=== PATIENT | female | born 1960 | race Caucasian/White ===

== ENCOUNTER 2017-09-06 06:54 | Day surgery (SDC) | payer OTHER ==
[~2017-09-06 06:54] MED LIST: Bupivacaine 0.5% 50 ML MDV ONE; Lidocaine 1% with EPINEPHrine 1:100,000 50 ML MDV ONE
[2017-09-06] MEDS ORDERED: Albuterol/Ipratropium 3.0-0.5 MG/3 ML Neb Soln NEB ONE (07:30)
[2017-09-06] MEDS ORDERED: Dextrose 5%-Lactated Ringers 1,000 ML IV SCH (07:30)
[2017-09-06] MEDS ORDERED: ceFAZolin 1 GM in Premix Bag 1 BAG IV ONE (08:15)
[2017-09-06] MEDS ORDERED: Midazolam 1 MG/ML 2 ML SDV ONE (09:09)
[2017-09-06] MEDS ORDERED: Propofol 200 MG/20 ML SDV ONE ×2 (09:09→09:36)
[2017-09-06] MEDS ORDERED: fentaNYL 100 MCG/2 ML SDV ONE (09:09)
--- NOTE | 2017-09-15 11:39 | OR ---
DATE OF PROCEDURE: 09/06/2017 PREOPERATIVE DIAGNOSIS: Nodular lesion, medial aspect of the left breast. POSTOPERATIVE DIAGNOSIS: Nodular lesion, medial aspect of the left breast. PROCEDURE PERFORMED: Excisional biopsy of the nodular lesion, medial aspect of left breast ([id number]). ANESTHESIA: Local plus IV sedation. INDICATION FOR PROCEDURE: This is a 57-year-old status post breast reduction, presenting with a linear nodular lesion on the medial aspect of the breast reduction incision. Plan is to proceed with an excision of this for diagnostic and therapeutic purposes. It is causing some discomfort at her bra strap line and the enlargement raises a slight possibility of some neoplastic change. Potential risks including bleeding, infection, need for additional treatment if malignancy is identified were reviewed, and the patient wishes to proceed. DETAILS OF PROCEDURE: The patient was taken to the operating room and placed in a left lateral decubitus position. IV sedation was administered, after which the area around the medial aspect of the left breast was prepped and draped. That area was then marked out along the skin as it had been preoperatively with a marking pen, and the area anesthetized with 1% lidocaine, essentially was in line with the medial most aspect of her breast reduction incision and an elliptical incision removing that area of skin as well as the underlying soft tissues was then made and carried down through the skin and subcutaneous tissue and down to what appeared to be the edge of the breast tissue. The specimen was then delivered from the field and hemostasis was obtained with electrocautery. The incision was closed with 4-0 Vicryl stitch deep and then a 5-0 Prolene skin stitch. Dressing was applied. The patient was taken to the recovery room in satisfactory condition. Espinoza Bolton MD /[id number]
== END 2017-09-06 11:20 | disposition home or self-care (01) ==
LOC: JP.SDS 06:54
PROVIDERS: ATTEND Surgery
DX: N63.20 Unspecified lump in the left breast, unspecified quadrant (principal); E66.9 Obesity, unspecified
CPT/HCPCS: 19120; 88304; 94640; J0690; J2250; J2704; J3010; J7042; J7620

== ENCOUNTER 2017-09-14 12:27 | Emergency (ER) | payer OTHER ==
--- NOTE | 2017-09-14 13:25 | EDM.PDOC ---
<Darron,Lacey - Last Filed: 09/14/17 13:53> ED HPI GENERAL MEDICAL PROBLEM - General Chief Complaint: Chest Pain Stated Complaint: CHEST PAIN Time Seen by Provider: 09/14/17 13:00 Source of Information: Reports: Patient History Limitations: Reports: No Limitations - History of Present Illness INITIAL COMMENTS - FREE TEXT/NARRATIVE: Pt presents with sudden onset upper right pain just below the clavicle. Onset: Today, Sudden Onset Date: 09/14/17 Onset Time: 09:00 Duration: Minutes:, Getting Worse Location: Reports: Chest, Other (upper right chest just below clavicle) - Related Data Allergies Allergy/AdvReac Type Severity Reaction Status Date / Time acetaminophen [From Vicodin] Allergy Other Verified 09/06/17 07:09 codeine Allergy Anaphylactic Verified 09/06/17 07:09 Shock hydrocodone [From Vicodin] Allergy Other Verified 09/06/17 07:09 morphine Allergy Other Verified 09/06/17 07:09 Home Meds: Home Meds Albuterol [Ventolin HFA] 2 inh INH Q4H PRN 09/02/17 [History] Aspirin [Adult Low Dose Aspirin EC] 81 mg PO DAILY 09/02/17 [History] Citalopram Hydrobromide [Celexa] 20 mg PO DAILY 09/02/17 [History] Cyclobenzaprine [Flexeril] 10 mg PO TID PRN 09/02/17 [History] Verapamil [Verapamil SR (24 Hr)] 180 mg PO DAILY 09/02/17 [History] atorvaSTATin [Lipitor] 40 mg PO DAILY 09/02/17 [History] Hydroxychloroquine Sulfate 200 mg PO BID 09/06/17 [History] predniSONE [Prednisone] 5 mg PO ASDIRECTED 09/06/17 [History] Past Medical History Cardiovascular History: Reports: None Respiratory History: Reports: Bronchitis, Recurrent Social & Family History - Family History Cardiac: Reports: Other (See Below) Other Cardiac Family History: mother with heart hx but not specific to type ED ROS GENERAL - Review of Systems Review Of Systems: See Below Constitutional: Reports: No Symptoms HEENT: Reports: No Symptoms Respiratory: Reports: Pleuritic Chest Pain. Denies: Shortness of Breath Cardiovascular: Reports: No Symptoms. Denies: Chest Pain, Dyspnea on Exertion, Orthopnea GI/Abdominal: Reports: No Symptoms. Denies: Abdominal Pain ED EXAM, GENERAL - Physical Exam Exam: See Below Free Text/Narrative:: 57 y/o female - VS stable, no tracheal deviation, Heart sounds regular, Lung sounds clear all sadler. Exam Limited By: No Limitations General Appearance: Alert, WD/WN, No Apparent Distress Neck: Normal Inspection, Supple, Non-Tender, Full Range of Motion Respiratory/Chest: No Respiratory Distress, Lungs Clear, Normal Breath Sounds, No Accessory Muscle Use, Chest Non-Tender, Other (unable to recreate pain with palpation) Cardiovascular: Normal Peripheral Pulses, Regular Rate, Rhythm, No Edema, No Gallop, No JVD, No Murmur, No Rub GI/Abdominal: Normal Bowel Sounds, Soft, Non-Tender Extremities: Normal Inspection, Normal Range of Motion, Other (right arm with full range of motion and unable to recreate the pain in the chest) EKG INTERPRETATION EKG Date: 09/14/17 Rhythm: NSR Rate (Beats/Min): 85 [place]: Normal P-Wave: Present QRS: Normal ST-T: Normal EKG Interpretation Comments: Sinus Rhythm Course - Vital Signs Last Recorded V/S: Last Vital Signs Temp 98.2 F 09/14/17 12:33 Pulse 74 09/14/17 13:53 Resp 12 09/14/17 13:53 BP 129/89 09/14/17 13:53 Pulse Ox 98 09/14/17 13:53 - Radiology Interpretation Free Text/Narrative:: Chest xray completed with no abnormal findings per radiologist Departure - Departure Disposition: Home, Self-Care 01 Clinical Impression: Pleurisy - Discharge Information Instructions: Pleurisy Referrals: PCP,None [Primary Care Provider] - Forms: ED Department Discharge Additional Instructions: Activity as tolerated Care Plan Goals: Increase activity as tolerated. Return if you develop fevers, increased shortness of breath or pain. 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 Psychiatric History: Reports: Anxiety, Depression Endocrine/Metabolic History: Reports: Obesity/BMI 30+ Oncologic (Cancer) History: Reports: Basal Cell Carcinoma Dermatologic History: Reports: Eczema - Infectious Disease History Infectious Disease History: Reports: Chicken Pox - Past Surgical History HEENT Surgical History: Reports: LASIK, Oral Surgery, Tonsillectomy Other HEENT Surgeries/Procedures: wisdom teeth GI Surgical History: Reports: Cholecystectomy, Colonoscopy Female Surgical History: Reports: Breast Reduction, Hysterectomy Oncologic Surgical History: Reports: Other (See Below) Other Oncologic Surgeries/Procedures: skin biopsy, MOHS procedure Social & Family History - Family History Family Medical History: Noncontributory - Tobacco Use Smoking Status *Q: Never Smoker - Caffeine Use Caffeine Use: Reports: Coffee, Soda - Recreational Drug Use Recreational Drug Use: No Course - Re-Assessments/Exams Free Text/Narrative Re-Assessment/Exam: 09/14/17 14:14 Discussed with the patient her normal EKG and normal chest x-ray. The hand hematoma is improving with pressure and needs no further treatment. Patient will return if symptoms are worsening or she develops other concern. Departure - Departure Time of Disposition: 14:19
--- NOTE | 2017-09-14 13:45 | CR ---
CHEST: 2 view CLINICAL HISTORY:Dyspnea COMPARISON:None FINDINGS: Lung sadler are clear. Heart and pulmonary vascularity appear normal. There are no effusio ns. IMPRESSION: No acute cardiopulmonary process
== END 2017-09-14 14:19 | disposition home or self-care (01) ==
LOC: JP.ED 12:27
DX: R09.1 Pleurisy (principal); E78.00 Pure hypercholesterolemia, unspecified; J45.909 Unspecified asthma, uncomplicated; Z88.6 Allergy status to analgesic agent; Z88.5 Allergy status to narcotic agent; Z79.82 Long term (current) use of aspirin; Z79.899 Other long term (current) drug therapy
CPT/HCPCS: 71046; 71046-26; 99285

== ENCOUNTER 2018-08-26 16:54 | Emergency (ER) | payer OTHER ==
--- NOTE | 2018-08-26 18:03 | EDM.PDOC ---
<Ara Toure - Last Filed: 08/26/18 18:05> ED HPI GENERAL MEDICAL PROBLEM - General Chief Complaint: Abdominal Pain Stated Complaint: PAIN IN ABD/BACK/DOWN RIGHT LEG Time Seen by Provider: 08/26/18 17:58 Source of Information: Reports: Patient History Limitations: Reports: No Limitations - History of Present Illness INITIAL COMMENTS - FREE TEXT/NARRATIVE: pt arrived stating that she has been having pain in the rt mid abdoman for about 3 weeks. This is very severe at times. She states the pain is intolerable. Onset: Gradual, Other (pt states the pain was very severe today. ) Duration: Day(s): Location: Reports: Abdomen Associated Symptoms: Reports: No Other Symptoms Right Flank Pain Score (Numeric/FACES): 7 - Related Data Allergies Allergy/AdvReac Type Severity Reaction Status Date / Time acetaminophen [From Vicodin] Allergy Other Verified 08/26/18 17:22 codeine Allergy Anaphylactic Verified 08/26/18 17:22 Shock hydrocodone [From Vicodin] Allergy Other Verified 08/26/18 17:22 morphine Allergy Other Verified 08/26/18 17:22 Home Meds: Home Meds Albuterol [Ventolin HFA] 2 inh INH Q4H PRN 09/02/17 [History] Aspirin [Adult Low Dose Aspirin EC] 81 mg PO DAILY 09/02/17 [History] Citalopram Hydrobromide [Celexa] 20 mg PO DAILY 09/02/17 [History] Cyclobenzaprine [Flexeril] 10 mg PO TID PRN 09/02/17 [History] Verapamil [Verapamil SR (24 Hr)] 180 mg PO DAILY 09/02/17 [History] atorvaSTATin [Lipitor] 40 mg PO DAILY 09/02/17 [History] Hydroxychloroquine Sulfate 200 mg PO BID 09/06/17 [History] Past Medical History HEENT History: Reports: Impaired Vision Other HEENT History: wears glasses Cardiovascular History: Reports: High Cholesterol, Hypertension 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 Psychiatric History: Reports: Anxiety, Depression Endocrine/Metabolic History: Reports: Obesity/BMI 30+ Oncologic (Cancer) History: Reports: Basal Cell Carcinoma Dermatologic History: Reports: Eczema - Infectious Disease History Infectious Disease History: Reports: Chicken Pox - Past Surgical History HEENT Surgical History: Reports: LASIK, Oral Surgery, Tonsillectomy Other HEENT Surgeries/Procedures: wisdom teeth GI Surgical History: Reports: Cholecystectomy, Colonoscopy Female Surgical History: Reports: Breast Reduction, Hysterectomy Oncologic Surgical History: Reports: Other (See Below) Other Oncologic Surgeries/Procedures: skin biopsy, MOHS procedure Social & Family History - Family History Family Medical History: Noncontributory Cardiac: Reports: Other (See Below) Other Cardiac Family History: mother with heart hx but not specific to type - Tobacco Use Smoking Status *Q: Never Smoker - Caffeine Use Caffeine Use: Reports: Coffee - Recreational Drug Use Recreational Drug Use: No ED ROS GENERAL - Review of Systems Review Of Systems: See Below Constitutional: Reports: No Symptoms HEENT: Reports: No Symptoms Respiratory: Reports: No Symptoms Cardiovascular: Reports: No Symptoms Endocrine: Reports: No Symptoms GI/Abdominal: Reports: Abdominal Pain, Other (pt had a normal stool today. ) : Reports: No Symptoms Musculoskeletal: Reports: No Symptoms Skin: Reports: No Symptoms Neurological: Reports: No Symptoms, Other (pt has had a past history of a cerebral aneuyism which was coiled. ) Psychiatric: Reports: No Symptoms ED EXAM, GI/ABD - Physical Exam Exam: See Below Text/Narrative:: pt arrived with pain in the rt lower abdoman. She states when she gets this at times it is very severe. Exam Limited By: No Limitations General Appearance: Alert, Anxious, Moderate Distress Ears: Normal TMs Nose: Normal Inspection Throat/Mouth: Normal Inspection Head: Atraumatic Neck: Normal Inspection Respiratory/Chest: No Respiratory Distress Cardiovascular: Regular Rate, Rhythm GI/Abdominal Exam: Soft, Other (mild tenderness in the rt lower abdoman. ) (Female) Exam: Deferred Rectal (Female) Exam: Deferred Back Exam: Normal Inspection Extremities: Normal Inspection Neurological: Alert, Oriented, Normal Cognition Course - Vital Signs Last Recorded V/S: Last Vital Signs Temp 37.0 C 08/26/18 17:25 Pulse 80 08/26/18 17:25 Resp 20 08/26/18 17:25 BP 153/84 H 08/26/18 17:25 Pulse Ox 96 08/26/18 17:25 - Orders/Labs/Meds Orders: Active Orders 24 hr Category Date Time Status CULTURE URINE [RM] Stat Lab 08/26/18 18:01 Received Iopamidol [Isovue-300 (61%)] Med 08/26/18 18:45 Active 150 ml IV . DIRECTED Sodium Chloride 0.9% [Normal Saline] 1,000 ml Med 08/26/18 18:30 Active IV ASDIRECTED Medication Orders Sodium Chloride (Normal Saline) 1,000 mls @ 999 mls/hr IV ASDIRECTED [facility]LOE Last Admin: 08/26/18 19:08 Dose: 999 mls/hr Iopamidol (Isovue-300 (61%)) 150 ml IV . DIRECTED [facility] Labs: Laboratory Tests 08/26/18 08/26/18 08/26/18 Range/Units 17:31 17:42 17:42 WBC 10.0 (4.5-11.0) K/uL RBC 5.04 (3.30-5.50) M/uL Hgb 14.3 (12.0-15.0) g/dL Hct 43.6 (36.0-48.0) % MCV 87 (80-98) fL MCH 28 (27-31) pg MCHC 33 (32-36) % Plt Count 363 (150-400) K/uL Neut % (Auto) 67 H (36-66) % Lymph % (Auto) 26 (24-44) % Mcdowell % (Auto) 6 (2-6) % Eos % (Auto) 1 L (2-4) % Baso % (Auto) 1 (0-1) % Sodium 141 (140-148) mmol/L Potassium 4.3 (3.6-5.2) mmol/L Chloride 105 (100-108) mmol/L Carbon Dioxide 26 (21-32) mmol/L Anion Gap 9.7 (5.0-14.0) mmol/L BUN 22 H (7-18) mg/dL Creatinine 1.0 (0.6-1.0) mg/dL Est Cr Clr Drug Dosing 56.71 mL/min Estimated GFR (MDRD) 57 L (>60) Glucose 156 H (74-106) mg/dL Calcium 10.1 (8.5-10.1) mg/dL Total Bilirubin 0.3 (0.2-1.0) mg/dL AST 23 (15-37) U/L ALT 31 (12-78) U/L Alkaline Phosphatase 126 H (46-116) U/L C-Reactive Protein (0.0-0.3) mg/dL Total Protein 7.6 (6.4-8.2) g/dL Albumin 4.0 (3.4-5.0) g/dL Globulin 3.6 H (2.3-3.5) g/dL Albumin/Globulin Ratio 1.1 L (1.2-2.2) Urine Color Yellow Urine Appearance Clear Urine pH 5.0 (4.5-8.0) Ur Specific Macy 1.030 (1.008-1.030) Urine Protein Negative (NEGATIVE) mg/dL Urine Glucose (UA) Normal (NEGATIVE) mg/dL Urine Ketones Negative (NEGATIVE) mg/dL Urine Occult Blood Large (NEGATIVE) Urine Nitrite Negative (NEGATIVE) Urine Bilirubin Negative (NEGATIVE) Urine Urobilinogen Normal (NORMAL) mg/dL Ur Leukocyte Esterase Trace (NEGATIVE) Urine RBC 20-30 H (0-5) Urine WBC 5-10 H (0-5) Ur Epithelial Cells Moderate Amorphous Sediment Not seen Urine Bacteria Many Urine Mucus Few 08/26/18 Range/Units 18:11 WBC (4.5-11.0) K/uL RBC (3.30-5.50) M/uL Hgb (12.0-15.0) g/dL Hct (36.0-48.0) % MCV (80-98) fL MCH (27-31) pg MCHC (32-36) % Plt Count (150-400) K/uL Neut % (Auto) (36-66) % Lymph % (Auto) (24-44) % Mcdowell % (Auto) (2-6) % Eos % (Auto) (2-4) % Baso % (Auto) (0-1) % Sodium (140-148) mmol/L Potassium (3.6-5.2) mmol/L Chloride (100-108) mmol/L Carbon Dioxide (21-32) mmol/L Anion Gap (5.0-14.0) mmol/L BUN (7-18) mg/dL Creatinine (0.6-1.0) mg/dL Est Cr Clr Drug Dosing mL/min Estimated GFR (MDRD) (>60) Glucose (74-106) mg/dL Calcium (8.5-10.1) mg/dL Total Bilirubin (0.2-1.0) mg/dL AST (15-37) U/L ALT (12-78) U/L Alkaline Phosphatase (46-116) U/L C-Reactive Protein 0.18 (0.0-0.3) mg/dL Total Protein (6.4-8.2) g/dL Albumin (3.4-5.0) g/dL Globulin (2.3-3.5) g/dL Albumin/Globulin Ratio (1.2-2.2) Urine Color Urine Appearance Urine pH (4.5-8.0) Ur Specific Macy (1.008-1.030) Urine Protein (NEGATIVE) mg/dL Urine Glucose (UA) (NEGATIVE) mg/dL Urine Ketones (NEGATIVE) mg/dL Urine Occult Blood (NEGATIVE) Urine Nitrite (NEGATIVE) Urine Bilirubin (NEGATIVE) Urine Urobilinogen (NORMAL) mg/dL Ur Leukocyte Esterase (NEGATIVE) Urine RBC (0-5) Urine WBC (0-5) Ur Epithelial Cells Amorphous Sediment Urine Bacteria Urine Mucus Meds: Medications Generic Name Dose Route Start Last Admin Trade Name Freq PRN Reason Stop Dose Admin Sodium Chloride 1,000 mls @ 999 mls/hr 08/26/18 18:30 08/26/18 19:08 Normal Saline IV 999 mls/hr ASDIRECTED CHLOE Administration Iopamidol 150 ml 08/26/18 18:45 Isovue-300 (61%) IV . DIRECTED [facility]LOE Discontinued Medications Generic Name Dose Route Start Last Admin Trade Name Freq PRN Reason Stop Dose Admin Sodium Chloride 100 mls @ 3.5 mls/sec 08/26/18 18:39 08/26/18 19:25 Normal Saline IV 08/26/18 18:40 3.5 mls/sec ONETIME ONE Administration Sodium Chloride 10 ml 08/26/18 18:39 08/26/18 19:25 Saline Flush FLUSH 08/26/18 18:40 10 ml ONETIME ONE Administration - Re-Assessments/Exams Free Text/Narrative Re-Assessment/Exam: 08/26/18 18:09 pt has alot of rbcs in her urine. She also has bacteria. She had a cat scan on the that did not reveal a stone. . There was a small fat containing hernia protruding between the rectus muscles. Departure - Departure Disposition: Home, Self-Care 01 Clinical Impression: Intermittent right lower quadrant abdominal pain - Discharge Information Instructions: Abdominal Pain, Adult, [id number] Referrals: PCP,None [Primary Care Provider] - Forms: ED Department Discharge Additional Instructions: Take TMP/SMZ DS every 12 hrs at least until your urine culture results are available. Drink ample fluids. Take ibuprofen 600 mg every 6 hrs with food and/ or aceteminophen up to 1000 mg every 6 hrs for pain relief. If more pain relief is needed try Percocet 1 every 4 hrs as needed. Keep your appt for Wednesday with the surgeon. Return here as needed. Check with your family doctor in 3 days regarding the result of your urine culture. - My Orders Last 24 Hours: My Active Orders 08/26/18 18:45 Iopamidol [Isovue-300 (61%)] 150 ml IV . DIRECTED - Assessment/Plan Last 24 Hours: My Active Orders 08/26/18 18:45 Iopamidol [Isovue-300 (61%)] 150 ml IV . DIRECTED <Bernard Nixon G - Last Filed: 08/26/18 20:28> Course - Radiology Interpretation Free Text/Narrative:: CT abd/pelvis without contrast-neg. Departure - Departure Time of Disposition: 20:30 Condition: Fair - Discharge Information *PRESCRIPTION DRUG MONITORING PROGRAM REVIEWED*: No *COPY OF PRESCRIPTION DRUG MONITORING REPORT IN PATIENT MAIDA: No
[2018-08-26] MEDS ORDERED: Sodium Chloride 0.9% 1,000 ML IV SCH (18:30)
[2018-08-26] MEDS ORDERED: Sodium Chloride 0.9% 100 ML IV ONE (18:39)
[2018-08-26] MEDS ORDERED: Iopamidol 612 MG/ML 150 ML Bottle IV SCH (18:45)
[2018-08-26] MEDS: Sodium Chloride 0.9% 10 ML Syringe FLUSH ONE ×2 (19:09→19:25)
--- NOTE | 2018-08-26 20:16 | CRLCT ---
INDICATION: Pain in right lower abdomen. CT ABDOMEN AND PELVIS WITH CONTRAST TECHNIQUE: Multidetector CT imaging was performed through the abdomen and pelvis following intravenous contrast administration using 150 mL Isovue 300. Coronal and sagittal reconstructions were generated. COMPARISON: 08/10/2018 CT abdomen and pelvis. FINDINGS: Lower chest: Lung bases are clear. Liver: Within normal limits. Gallbladder and bile ducts: Status post cholecystectomy, as before. No biliary dilation identified. Pancreas: Unremarkable. Spleen: Normal. Adrenals: No nodules or masses. Kidneys, ureters, and urinary bladder: Unchanged small left renal cyst. No suspicious renal masses or hydronephrosis. No bladder mass or definite wall thickening. Gastrointestinal tract and abdominal wall: Normal caliber bowel without wall thickening. The appendix is normal. Diastasis recti and unchanged small midline fat-containing ventral hernia in the suprapubic region. Vascular structures: Normal for age. Peritoneum: No free air, abscess, or significant free fluid. Lymph nodes: No pathologically enlarged nodes identified. Reproductive organs: Status post hysterectomy, as before. No pelvic masses. Bones: Minor spinal degenerative changes. IMPRESSION: 1. No acute abnormality identified. No definite cause for the patient`s symptoms is demonstrated. 2. Nonacute findings as detailed above. MODE BAXTER MD [employer] Dictated by Lobito Baxter MD @ 08/26/2018 8:08:18 PM Dictated by: Lobito Baxter MD @ 08/26/2018 20:13:38 (Electronically Signed)
[2018-08-26] MEDS ORDERED: Iopamidol 500 ML BOTTLE IV ONE (23:19)
== END 2018-08-26 20:39 | disposition home or self-care (01) ==
LOC: JP.ED 16:54
DX: R10.31 Right lower quadrant pain (principal); I10 Essential (primary) hypertension; E78.00 Pure hypercholesterolemia, unspecified; F41.9 Anxiety disorder, unspecified; F32.9 Major depressive disorder, single episode, unspecified; Z79.82 Long term (current) use of aspirin; Z79.899 Other long term (current) drug therapy; Z88.6 Allergy status to analgesic agent; Z88.5 Allergy status to narcotic agent; Z88.8 Allergy status to other drugs, medicaments and biological substances; K43.9 Ventral hernia without obstruction or gangrene
CPT/HCPCS: 36415; 74177; 76705; 80053; 81001; 85025; 86140; 87086; 96360; 99284; J7030

== ENCOUNTER 2020-03-01 11:51 | Emergency (ER) | payer OTHER ==
[2020-03-01] MEDS ORDERED: Acyclovir 200 MG Cap PO ONE (12:25)
--- NOTE | 2020-03-01 12:30 | EDM.PDOC ---
ED HPI GENERAL MEDICAL PROBLEM - General Chief Complaint: Skin Complaint Stated Complaint: THINKS SHE HAS SHINGLES Time Seen by Provider: 03/01/20 12:25 Source of Information: Reports: Patient History Limitations: Reports: No Limitations - History of Present Illness INITIAL COMMENTS - FREE TEXT/NARRATIVE: pt has pain over her rt thigh which has been there for 3-4 days. She is now breaking out in a rash and this does look like shingles. Onset: Other ( rash started 36 hours ago and the pain started 4 days ago. ) Duration: Hour(s): Location: Reports: Lower Extremity, Right Associated Symptoms: Reports: No Other Symptoms, Other (pt has not had a fever. ) - Related Data Allergies Allergy/AdvReac Type Severity Reaction Status Date / Time acetaminophen [From Vicodin] Allergy Other Verified 08/26/18 17:22 codeine Allergy Anaphylactic Verified 08/26/18 17:22 Shock hydrocodone [From Vicodin] Allergy Other Verified 08/26/18 17:22 morphine Allergy Other Verified 08/26/18 17:22 Home Meds: Home Meds Albuterol [Ventolin HFA] 2 inh INH Q4H PRN 09/02/17 [History] Aspirin [Adult Low Dose Aspirin EC] 81 mg PO DAILY 09/02/17 [History] Citalopram Hydrobromide [Celexa] 20 mg PO DAILY 09/02/17 [History] Cyclobenzaprine [Flexeril] 10 mg PO TID PRN 09/02/17 [History] Verapamil [Verapamil SR (24 Hr)] 180 mg PO DAILY 09/02/17 [History] atorvaSTATin [Lipitor] 40 mg PO DAILY 09/02/17 [History] Hydroxychloroquine Sulfate 200 mg PO BID 09/06/17 [History] Past Medical History HEENT History: Reports: Impaired Vision Other HEENT History: wears glasses Cardiovascular History: Reports: High Cholesterol, Hypertension Respiratory History: Reports: Asthma 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 Psychiatric History: Reports: Anxiety, Depression Endocrine/Metabolic History: Reports: Obesity/BMI 30+ Oncologic (Cancer) History: Reports: Basal Cell Carcinoma Dermatologic History: Reports: Eczema - Infectious Disease History Infectious Disease History: Reports: Chicken Pox - Past Surgical History HEENT Surgical History: Reports: LASIK, Oral Surgery, Tonsillectomy Other HEENT Surgeries/Procedures: wisdom teeth GI Surgical History: Reports: Cholecystectomy, Colonoscopy Female Surgical History: Reports: Breast Reduction, Hysterectomy Oncologic Surgical History: Reports: Other (See Below) Other Oncologic Surgeries/Procedures: skin biopsy, MOHS procedure Social & Family History - Family History Family Medical History: No Pertinent Family History Cardiac: Reports: Other (See Below) Other Cardiac Family History: mother with heart hx but not specific to type - Tobacco Use Tobacco Use Status *Q: Never Tobacco User - Caffeine Use Caffeine Use: Reports: Coffee ED ROS GENERAL - Review of Systems Review Of Systems: See Below Constitutional: Reports: Other (pt is having discomfort. ) HEENT: Reports: No Symptoms Respiratory: Reports: No Symptoms Cardiovascular: Reports: No Symptoms Endocrine: Reports: No Symptoms GI/Abdominal: Reports: No Symptoms : Reports: No Symptoms Musculoskeletal: Reports: Other (pt has pain in rt thigh. ) Neurological: Reports: No Symptoms Psychiatric: Reports: No Symptoms Hematologic/Lymphatic: Reports: No Symptoms ED EXAM, SKIN/RASH Exam: See Below Text/Narrative:: pt arrived with a rash on the rt thigh. She is having alot discomfort. She now has a rash which looks like shingles. Exam Limited By: No Limitations General Appearance: Alert, Anxious, Moderate Distress Ears: Normal TMs Nose: Normal Inspection Throat/Mouth: Normal Inspection Head: Atraumatic Neck: Normal Inspection Respiratory/Chest: No Respiratory Distress Cardiovascular: Regular Rate, Rhythm GI/Abdominal: Soft, Non-Tender (Female) Exam: Deferred Rectal (Female) Exam: Deferred Back Exam: Normal Inspection Extremities: Other (pt has a vescular rash on the rt thigh area. This is not extensive. ) Neurological: Alert, Oriented, Normal Cognition Psychiatric: Anxious Course - Vital Signs Last Recorded V/S: Last Vital Signs Temp 37.2 C 03/01/20 12:06 Pulse 70 03/01/20 12:06 Resp 16 03/01/20 12:06 BP 137/72 03/01/20 12:06 Pulse Ox 94 L 03/01/20 12:06 - Orders/Labs/Meds Meds: Medications Discontinued Medications Generic Name Dose Route Start Last Admin Trade Name Freq PRN Reason Stop Dose Admin Acyclovir 600 mg 03/01/20 12:25 Zovirax PO 03/01/20 12:26 ONETIME ONE Departure - Departure Time of Disposition: 12:28 Disposition: Home, Self-Care 01 Condition: Fair Clinical Impression: Shingles rash - Discharge Information Instructions: Shingles, [id number] Referrals: Queenie Gonzáles, RN [Primary Care Provider] - Forms: ED Department Discharge Care Plan Goals: zovirax 400mg 3 times daily for 5 days. , predisone 20mg daily for 5 days, norco 5/325 q6h prn for pain # 10. rtc if pt should get worse or follow with primary provider. Sepsis Event Note (ED) - Evaluation Sepsis Screening Result: No Definite Risk
== END 2020-03-01 12:52 | disposition home or self-care (01) ==
LOC: JP.ED 11:51
DX: B02.9 Zoster without complications (principal); M79.651 Pain in right thigh; I10 Essential (primary) hypertension; E78.00 Pure hypercholesterolemia, unspecified; J45.909 Unspecified asthma, uncomplicated; M19.90 Unspecified osteoarthritis, unspecified site; F41.9 Anxiety disorder, unspecified; F32.9 Major depressive disorder, single episode, unspecified; E66.9 Obesity, unspecified; Z68.38 Body mass index [BMI] 38.0-38.9, adult; Z88.6 Allergy status to analgesic agent; Z88.5 Allergy status to narcotic agent; Z79.82 Long term (current) use of aspirin; Z79.899 Other long term (current) drug therapy
CPT/HCPCS: 99283

== ENCOUNTER 2021-02-12 08:34 | Day surgery (SDC) | payer OTHER ==
[~2021-02-12 08:34] MED LIST changes: -Lidocaine 1% with EPINEPHrine 1:100,000 50 ML MDV ONE
[2021-02-12] MEDS ORDERED: Midazolam 1 MG/ML 2 ML SDV ONE ×2 (08:52→12:41)
[2021-02-12] MEDS ORDERED: fentaNYL 100 MCG/2 ML SDV ONE ×2 (08:52→12:27)
[2021-02-12] MEDS ORDERED: Propofol 200 MG/20 ML SDV ONE ×4 (08:52→12:46)
[2021-02-12] MEDS ORDERED: Nozin Nasal Sanitizer NASBOTH ONE (09:00)
[2021-02-12] MEDS ORDERED: ceFAZolin 2 GM in Premix Bag 1 BAG IV ONE (09:00)
[2021-02-12] MEDS ORDERED: Lactated Ringers 1,000 ML IV SCH (09:00)
[2021-02-12] MEDS ORDERED: Bupivacaine 0.5% 30 ML SDV ONE (09:14)
[2021-02-12] MEDS ORDERED: Dexamethasone 4 MG/ML SDV ONE (13:26)
[2021-02-12] MEDS ORDERED: Ondansetron 4 MG/2 ML SDV ONE (13:26)
[2021-02-12] MEDS ORDERED: traMADol 50 MG Tab PO ONE (15:23)
--- NOTE | 2021-02-19 21:54 | OR ---
DATE OF PROCEDURE: 02/12/2021 SURGEON: Jenaro Membreno MD PREOPERATIVE DIAGNOSES: 1. Impingement right shoulder. 2. Partial thickness rotator cuff tear, possible full-thickness. POSTOPERATIVE DIAGNOSES: 1. Impingement right shoulder. 2. Severe partial thickness tear, supraspinous. 3. Degenerative labral tear. PROCEDURES: Arthroscopy, right shoulder with debridement of labrum, subacromial decompression with acromioplasty and repair of rotator cuff. COMPANY ACCOUNTANT: ODALYS Chappell ANESTHESIA: Interscalene block with sedation. INDICATIONS: Yanet is a 60-year-old female with a history of persistent pain and weakness in the right shoulder, especially with overhead activities and lifting. Examination and imaging are consistent with impingement and at least partial thickness rotator cuff tear. She has failed conservative treatment, now presents for evaluation of rotator cuff and repair if necessary. Risks, benefits, and potential complications of the procedure were discussed. DESCRIPTION OF PROCEDURE: After adequate anesthesia was obtained, the patient was placed in a lateral decubitus position and secured with a segura bag positioner. Right shoulder and arm were prepped and draped in a sterile fashion and 10 pounds of traction was placed in a shoulder traction unit. A standard posterior portal was established. Glenohumeral joint was inspected. This revealed intact articular cartilage on the humeral head and glenoid. Some mild degenerative changes of the anterior labrum was noted with free flap along the anterior and anterior-superior portion running up to the junction with the biceps attachment. The biceps tendon itself was intact. Subscapularis was intact. The anterior portal was established. The degenerative flaps of the labrum were debrided. The undersurface of the rotator cuff was evaluated and found to have severe partial-thickness tear with an area of erythematous granulation tissue filling the gap. The scope was withdrawn and placed in the subacromial space. Significant impingement was noted against the coracoacromial ligament and anterolateral acromion. Using the radiofrequency ablation wand, soft tissues were cleared from the undersurface of the acromion exposing the anterolateral edge and a rich was utilized to perform an acromioplasty removing approximately 4 mm. The bursal side of the rotator cuff was inspected. This revealed the partial thickness tear with a very thin layer of granulation tissue present. This was debrided. This resulted in a small full-thickness tear of approximately 1 cm. Using both shaver and a small bur, the superior aspect of the tuberosity was debrided and lightly decorticated. A single Mitek Healix anchor was placed. All 4 limbs of the suture anchor were then brought up through the tendon in a mattress fashion and tied down. This reapproximated the tendon to the tuberosity and all 4 limbs were then delivered through a knotless anchor which was placed just off the lateral edge of the acromion providing a suture bridge and a lateral row. The arm was taken through internal and external rotation. No other abnormalities were identified. Repair was stable. Shoulder was drained and scope was withdrawn. Port sites were closed with 3-0 Monocryl suture. Steri-Strips were applied along with sterile dressing. The patient tolerated procedure well. There were no complications and taken from the operating room in stable condition. Jenaro Membreno MD /[id number]
== END 2021-02-12 16:00 | disposition home or self-care (01) ==
LOC: JP.SDS 08:34
PROVIDERS: ATTEND Specialist
DX: M75.121 Complete rotator cuff tear or rupture of right shoulder, not specified as traumatic (principal); M25.811 Other specified joint disorders, right shoulder; S43.431A Superior glenoid labrum lesion of right shoulder, initial encounter; M06.9 Rheumatoid arthritis, unspecified; G43.909 Migraine, unspecified, not intractable, without status migrainosus; E78.2 Mixed hyperlipidemia; F43.23 Adjustment disorder with mixed anxiety and depressed mood; F41.9 Anxiety disorder, unspecified; Z98.890 Other specified postprocedural states; Z79.899 Other long term (current) drug therapy; Z88.5 Allergy status to narcotic agent; Z79.82 Long term (current) use of aspirin
CPT/HCPCS: 29826; 29827; A9270; C1713; J0690; J1100; J2250; J2405; J2704; J3010; J3490; J7120

== ENCOUNTER 2021-02-12 16:45 | Emergency (ER) | payer OTHER ==
[2021-02-12] MEDS ORDERED: Ketorolac 30 MG/ML SDV IVPUSH ONE (16:59)
[2021-02-12] MEDS: Ketorolac 30 MG/ML SDV IM ONE (17:09)
[2021-02-12] MEDS: Alum Hydrox/Mag Hydrox/Simeth 15 ML, Lidocaine 2% 15 ML PO ONE ×2 (17:21)
--- NOTE | 2021-02-12 17:46 | EDM.PDOC ---
ED HPI GENERAL MEDICAL PROBLEM - General Chief Complaint: Chest Pain Stated Complaint: LEFT SIDE CHEST PAIN Time Seen by Provider: 02/12/21 17:15 Source of Information: Reports: Patient, Family, Provider History Limitations: Reports: No Limitations - History of Present Illness INITIAL COMMENTS - FREE TEXT/NARRATIVE: 60-year-old female who has chronic cough issues, had a surgically repaired right rotator cuff today arthroscopically. She was seen in [facility] and was doing well, she was given 1 tramadol prior to going home. On the way home she had some coughing, and then developed a very intense left upper abdomen and left anterior chest pain radiating substernal. It hurts to breathe, it hurts to move, and she was very uncomfortable. She called the [facility] nursing for follow-up and was told to go to the emergency room. She arrived uncomfortable with a fairly elevated blood pressure of 182/112, was not tachycardic or short of breath despite her pleuritic pain. No fevers or chills. Onset: Sudden Duration: Minutes: (Pain is been worse for the last 10 to 15 minutes) Location: Reports: Chest, Abdomen (Left side) Quality: Reports: Sharp, Stabbing Improves with: Reports: None Worsens with: Reports: Other (Breathing or coughing causes increased pain), Movement Associated Symptoms: Reports: Malaise. Denies: Fever/Chills, Nausea/Vomiting, Weakness Left Shoulder Pain Score (Numeric/FACES): 6 - Related Data Allergies Allergy/AdvReac Type Severity Reaction Status Date / Time codeine Allergy Severe Anaphylactic Verified 02/12/21 17:01 Shock hydrocodone [From Vicodin] AdvReac Nausea and Verified 02/12/21 17:01 Vomiting morphine AdvReac Nausea and Verified 02/12/21 17:01 Vomiting Home Meds: Home Meds Albuterol [Ventolin HFA] 2 inh INH Q6H PRN 09/02/17 [History] Aspirin [Adult Low Dose Aspirin EC] 81 mg PO DAILY 09/02/17 [History] Citalopram Hydrobromide [Celexa] 20 mg PO DAILY 09/02/17 [History] Cyclobenzaprine [Flexeril] 10 mg PO TID PRN 09/02/17 [History] Verapamil [Verapamil SR (24 Hr)] 180 mg PO DAILY 09/02/17 [History] atorvaSTATin [Lipitor] 40 mg PO DAILY 09/02/17 [History] Hydroxychloroquine Sulfate 200 mg PO BID 09/06/17 [History] Cholecalciferol (Vitamin D3) [Vitamin D3] 4,000 unit PO DAILY 11/06/20 [History] Multivitamin [Multiple Vitamins] 1 tab PO DAILY 11/06/20 [History] Past Medical History HEENT History: Reports: Impaired Vision Other HEENT History: wears glasses Cardiovascular History: Reports: High Cholesterol, Hypertension Respiratory History: Reports: Asthma Genitourinary History: Reports: UTI, Recurrent RECAPPER History: Reports: Dysfunctional Uterine Bleeding, Musculoskeletal History: Reports: Arthritis, Fracture Other Musculoskeletal History: R shoulder pain Neurological History: Reports: Cerebral Aneurysms, Migraines Other Neuro History: Stent in neck on the left side. Psychiatric History: Reports: Anxiety, Depression Endocrine/Metabolic History: Reports: Obesity/BMI 30+ Oncologic (Cancer) History: Reports: Basal Cell Carcinoma Dermatologic History: Reports: Eczema - Infectious Disease History Infectious Disease History: Reports: Chicken Pox - Past Surgical History HEENT Surgical History: Reports: LASIK, Oral Surgery, Tonsillectomy Other HEENT Surgeries/Procedures: wisdom teeth GI Surgical History: Reports: Cholecystectomy, Colonoscopy Female Surgical History: Reports: Breast Reduction, Hysterectomy Neurological Surgical History: Reports: Other (See Below) Other Neurological Surgeries/Procedures: brain aneurysm with coil placed Musculoskeletal Surgical History: Reports: None Oncologic Surgical History: Reports: Other (See Below) Other Oncologic Surgeries/Procedures: skin biopsy, MOHS procedure Social & Family History - Family History Family Medical History: No Pertinent Family History Cardiac: Reports: Other (See Below) Other Cardiac Family History: mother with heart hx but not specific to type - Tobacco Use Tobacco Use Status *Q: Never Tobacco User - Caffeine Use Caffeine Use: Reports: Coffee ED ROS GENERAL - Review of Systems Review Of Systems: See Below Constitutional: Denies: Fever, Chills HEENT: Reports: No Symptoms Respiratory: Reports: Pleuritic Chest Pain, Cough Cardiovascular: Denies: Chest Pain GI/Abdominal: Reports: Abdominal Pain. Denies: Nausea, Vomiting Skin: Reports: No Symptoms Neurological: Reports: Other (She did have a history of an cerebral aneurysm in the past which needed repair). Denies: Headache, Paresthesia Psychiatric: Reports: No Symptoms ED EXAM, GENERAL - Physical Exam Exam: See Below Exam Limited By: No Limitations General Appearance: Alert, Moderate Distress, Other (Initially patient was intensely uncomfortable hypertensive and slightly diaphoretic from the pain) Eye Exam: Bilateral Eye: Normal Inspection Head: Atraumatic Neck: Supple, Non-Tender Respiratory/Chest: Lungs Clear, Other (I could not reproduce the pain with palpation of the chest wall, patient could worsen the pain with a deep breath) Cardiovascular: Regular Rate, Rhythm. No: Tachycardia, Extra Beats GI/Abdominal: Soft, Non-Tender Neurological: Alert, Oriented Psychiatric: Anxious Skin Exam: Warm, Dry #1 Interpretation EKG Date: 02/12/21 Rhythm: NSR Comparison: No Change Course - Vital Signs Last Recorded V/S: Last Vital Signs Temp 97.4 F 02/12/21 16:57 Pulse 74 02/12/21 17:37 Resp 21 H 02/12/21 17:37 BP 160/75 H 02/12/21 17:37 Pulse Ox 95 02/12/21 17:37 - Orders/Labs/Meds Orders: Active Orders 24 hr Category Date Time Status Chest 1V Frontal [CR] Stat Exams 02/12/21 16:58 Taken EKG 12 Lead [EK] Routine Ther 02/12/21 16:59 Ordered Meds: Medications Discontinued Medications Generic Name Dose Route Start Last Admin Trade Name Mayra PRN Reason Stop Dose Admin Al Hydroxide/Mg Hydroxide 15 0 ml 02/12/21 17:16 02/12/21 17:21 ml/ Lidocaine HCl 15 ml PO 02/12/21 17:17 30 ml ONETIME ONE Administration Ketorolac Tromethamine 30 mg 02/12/21 17:03 02/12/21 17:09 Ketorolac 30 Mg/Ml Sdv IM 02/12/21 17:04 30 mg ONETIME ONE Administration - Re-Assessments/Exams Free Text/Narrative Re-Assessment/Exam: 02/12/21 17:53 EKG was done which was entirely normal. Portable chest x-ray showed an elevated right hemidiaphragm but lungs were otherwise clear. Patient was then given 30 mg of IM Toradol followed by GI cocktail, within 20 minutes her pain was almost gone. Unfortunately just prior to discharge she coughed again and the pain increased. Suspect this is musculoskeletal discomfort so she needs to continue her medications as prescribed. Departure - Departure Time of Disposition: 18:00 Disposition: Home, Self-Care 01 Clinical Impression: Left-sided chest wall pain - Discharge Information Instructions: Nonspecific Chest Pain, Adult, [id number] Referrals: Queenie Gonzáles RN [Primary Care Provider] - Forms: ED Department Discharge Care Plan Goals: Continue with your current medications, heating pad to the sore area may be helpful, Maalox may be beneficial as well if pain recurs and is persistent. Return anytime if increasing problems breathing, fever, or uncontrolled pain. Sepsis Event Note (ED) - Evaluation Sepsis Screening Result: No Definite Risk - Focused Exam Vital Signs: Vital Signs Temp Pulse Resp BP Pulse Ox 02/12/21 17:37 74 21 H 160/75 H 95 02/12/21 17:15 78 18 170/103 H 95 02/12/21 16:57 97.4 F 85 13 182/112 H 95 02/12/21 16:54 97.4 F 85 13 182/112 H 95 - My Orders Last 24 Hours: My Active Orders 02/12/21 16:58 Chest 1V Frontal [CR] Stat 02/12/21 16:59 EKG 12 Lead [EK] Routine - Assessment/Plan Last 24 Hours: My Active Orders 02/12/21 16:58 Chest 1V Frontal [CR] Stat 02/12/21 16:59 EKG 12 Lead [EK] Routine
--- NOTE | 2021-02-13 09:31 | CR ---
CHEST: Portable 02/12/2021 at 5:06 PM CLINICAL HISTORY:Left chest pain COMPARISON:2018 FINDINGS: There is moderate elevation of the right hemidiaphragm which is a change from prior study. The heart and pulmonary vascularity appear normal. No infiltrates are seen. IMPRESSION: Moderate interval elevation of the right hemidiaphragm of unknown etiology. No infiltrate seen
== END 2021-02-12 18:07 | disposition home or self-care (01) ==
LOC: JP.ED 16:45
DX: R07.89 Other chest pain (principal); E78.00 Pure hypercholesterolemia, unspecified; I10 Essential (primary) hypertension; J45.909 Unspecified asthma, uncomplicated; M19.90 Unspecified osteoarthritis, unspecified site; E66.9 Obesity, unspecified; Z68.39 Body mass index [BMI] 39.0-39.9, adult; Z88.5 Allergy status to narcotic agent; Z79.82 Long term (current) use of aspirin; Z79.899 Other long term (current) drug therapy
CPT/HCPCS: 71045; 93005; 96372; 99285; A9270; J1885

== ENCOUNTER 2025-01-09 06:57 | Emergency (ER) | payer MEDICARE, OTHER ==
[2025-01-09] MEDS: Ondansetron 4 MG/2 ML SDV IVPUSH ONE (07:53)
[2025-01-09] MEDS: Sodium Chloride 0.9% 10 ML Syringe FLUSH PRN (07:54)
[2025-01-09] MEDS: Ketorolac 30 MG/ML SDV IVPUSH ONE (08:38)
[2025-01-09] MEDS: diphenhydrAMINE 50 MG/ML SDV IVPUSH ONE (08:39)
[2025-01-09] MEDS: fentaNYL 100 MCG/2 ML SDV IVPUSH ONE (09:19)
[2025-01-09 09:22] LABS: BASOPHILS ABSOLUTE AUTO 0.03 K/uL (0.00-0.10); BASOPHILS PERCENT AUTO 0.2 % (0.1-1.3); EOSINOPHILS PERCENT AUTO 0.0 % (0.0-5.4); IMMATURE GRAN ABSOLUTE AUTO 0.11 K/uL (0.00-0.23); IMMATURE GRAN PERCENT AUTO 0.6 % (0.0-0.7); LYMPHOCYTES ABSOLUTE AUTO 1.02 K/uL (0.8-3.3); LYMPHOCYTES PERCENT AUTO 5.7 % (11.4-47.7); MONOCYTES ABSOLUTE AUTO 0.70 K/uL (0.20-0.90); MONOCYTES PERCENT AUTO 3.9 % (3.3-12.6); NEUTROPHILS ABSOLUTE AUTO 15.94 K/uL (1.0-7.6); NEUTROPHILS PERCENT AUTO 89.6 % (40.0-78.1); PLATELET COUNT,PLT 352 K/uL (130-375); RED BLOOD CELL COUNT 4.86 M/uL (3.77-5.24); WHITE BLOOD CELL COUNT,WBC 17.8 K/uL (3.2-11.0)
[2025-01-09 09:37] LABS: EOSINOPHILS ABSOLUTE AUTO 0.00 K/uL (0.00-0.40)
[2025-01-09 09:38] LABS: BLOOD UREA NITROGEN,BUN 15.0 mg/dL (7-18); CARBON DIOXIDE,CO2 27.0 mmol/L (21-32); CHLORIDE,CL 103.0 mmol/L (100-108); CREATININE 0.8 mg/dL (0.6-1.0); EST CRCL DRUG DOSING (CG) 65.63 mL/min; ESTIMATED GFR 82.0 mL/min (>60); GLUCOSE RANDOM 156.0 mg/dL (74-106); POTASSIUM,K 3.9 mmol/L (3.6-5.2); SODIUM,NA 138.0 mmol/L (140-148)
== END 2025-01-09 10:45 | disposition home or self-care (01) ==
LOC: JP.ED 06:57
DX: G89.18 Other acute postprocedural pain (principal); I10 Essential (primary) hypertension; E78.00 Pure hypercholesterolemia, unspecified; E66.9 Obesity, unspecified; Z88.5 Allergy status to narcotic agent; Z88.8 Allergy status to other drugs, medicaments and biological substances; Z79.82 Long term (current) use of aspirin; Z79.899 Other long term (current) drug therapy; Z90.49 Acquired absence of other specified parts of digestive tract
CPT/HCPCS: 36415; 80048; 83605; 85025; 93971; 96374; 96375; 99284; J1200; J2405; J3010; J7030; J1171; J1885

== ENCOUNTER 2025-02-04 10:24 | Emergency (ER) | payer MEDICARE ==
[2025-02-04] MEDS ORDERED: Ketorolac 15 MG/ML SDV IM ONE (10:49)
[2025-02-04] MEDS ORDERED: Naloxone 0.4 MG/ML SDV IVPUSH PRN (11:27)
[2025-02-04] MEDS: methylPREDNISolone Sodium Succinate 125 MG/2 ML SDV IM ONE (12:03)
[2025-02-04] MEDS: methylPREDNISolone Sodium Succinate 125 MG/2 ML SDV IVPUSH ONE (12:05)
[2025-02-04] MEDS: oxyCODONE ER 10 MG TAB.ER PO ONE (13:34)
[2025-02-04] MEDS: diphenhydrAMINE 50 MG/ML SDV IVPUSH ONE (14:58)
[2025-02-04] MEDS: diphenhydrAMINE 50 MG/ML SDV ONE (14:59)
[2025-02-04] MEDS: fentaNYL 100 MCG/2 ML SDV IVPUSH ONE (15:00)
[2025-02-04] MEDS: fentaNYL 50 MCG/ML SDV IM ONE (15:00)
== END 2025-02-04 16:56 | disposition home or self-care (01) ==
LOC: JP.ED 10:24
DX: M48.061 Spinal stenosis, lumbar region without neurogenic claudication (principal); G54.4 Lumbosacral root disorders, not elsewhere classified; M54.42 Lumbago with sciatica, left side; I10 Essential (primary) hypertension; E78.00 Pure hypercholesterolemia, unspecified; J45.909 Unspecified asthma, uncomplicated; M19.90 Unspecified osteoarthritis, unspecified site; E66.9 Obesity, unspecified; Z88.5 Allergy status to narcotic agent; Z79.51 Long term (current) use of inhaled steroids; Z79.82 Long term (current) use of aspirin; Z79.899 Other long term (current) drug therapy; Z90.89 Acquired absence of other organs; Z90.49 Acquired absence of other specified parts of digestive tract; Z68.37 Body mass index [BMI] 37.0-37.9, adult
CPT/HCPCS: 72131; 72190; 73562; 76377; 96374; 96375; 99284; A9270; J1200; J3010; J1171; J2919